=== PATIENT | male | born 1935 | race Caucasian/White ===

== ENCOUNTER 2023-12-01 09:18 | Emergency (ER) | payer MEDICARE, OTHER, SELFPAY ==
[2023-12-01 09:24] VITALS: BP 173/86
--- NOTE | 2023-12-01 09:32 | ED.GENMED ---
History of Present Illness
General
Chief Complaint: Back Pain
Time Seen by Provider: 12/01/23 09:32
Travel History
Have you had any contact with someone who has COVID-19?: No
Do you have any symptoms of coronavirus? Fever > 100 degrees, chills, cough, shortness of breath, sore throat, loss of taste or smell, muscle aches, or headache?: No
History of Present Illness
History of Present Illness:
HPI: The patient presents with back pain and intermittent lateral left thigh pain. He initially felt that the symptoms were related to sciatica. The thigh pain has resolved but the back pain persists. He has a history of solitary kidney related
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
EXAM:
GENERAL: Well appearing in mild distress
HEENT: Moist oral mucosa
ABDOMEN: Soft with no peritoneal signs, no tenderness
BACK: There is no midline L-spine tenderness, there is some vague lumbar tenderness which is very minimal, no CVA tenderness
NEUROLOGIC: Excellent strength all extremities, no coordination deficits
PSYCHIATRIC: Appropriate mental status, normal insight and judgement
EXTREMITIES: Nontender, no edema, moves all extremities equally
SKIN: No rash, no lesions
TIME OF INITIAL ENCOUNTER: 9:45 AM
NUMBER AND COMPLEXITY OF PROBLEMS ADDRESSED AT THE ENCOUNTER
� Chronic conditions affecting care: History of renal cell carcinoma, BPH, high blood pressure, hyperlipidemia
� Acute Exacerbation and/or Progression of Chronic Illness: This is an acute problem but has had sciatica in the past
� Differential Diagnosis includes: Sciatica, nonspecific back pain, metastatic disease
AMOUNT AND/OR COMPLEXITY OF DATA TO BE REVIEWED AND ANALYZED
� I performed an independent evaluation of and my interpretation is:
EKG:
CT: CT imaging shows advanced lumbar degenerative changes. CT of the abdomen pelvis shows no sign of obstructive nephropathy.
X-rays:
Laboratory Studies:
Other:
� Review of other/old records: I reviewed lab work from last year that showed renal insufficiency with creatinine of 1.5-1.6
� Clinical information was obtained by an independent historian: I spoke to the at bedside
� Prescriptions/Medications Considered but not given: Will hold off on steroids as there currently is no radicular symptoms
� Further testing considered but not performed:
RISK OF COMPLICATIONS AND/OR MORBIDITY OR MORTALITY OF PATIENT MANAGEMENT
� Social determinants of health affecting care: Lives at home
� Discussion with other providers:
� Escalation of care including admission/observation vs risk of discharge considered: Gave patient a dose of tramadol as he cannot have NSAIDs and has not really improved much with Tylenol. On reassessment 11:30 AM the patient
overall appears and feels improved. Offered to call their son who is a ER doctor in [place] however they declined. Instructed patient not to drive� will drive home.
Past History
Past History
ED Past Medical History: HTN, Hypercholesterolemia, Other (BPH) and Other (Peripheral vascular disease)
ED Past Surgical History: Appendectomy
Social History
Tobacco: Non-smoker
Alcohol: None
Personal:
Living: with family
Employment: Retired
Family History
Family History: Hypertension
Phy Exam
Physical Exam
Physical Exam:
See HPI
Course
Orders/Labs/Results
Orders:
Orders
12/01/23 09:43
CT Abd/pel Without Iv Or Oral Urgent
Comment:
Reason For Exam: L>R pain solitary kidney
Acetaminophen [Tylenol] 1,000 mg PO NOW STA
Tramadol HCl [Ultram] 50 mg PO NOW STA
12/01/23 09:44
CT Lumbar Spine W/o Iv Contras Urgent
Comment:
Reason For Exam: severe pain
Vital Signs
Initial and Last Documented VS:
Initial Vital Signs
Temp Pulse Resp BP Pulse Ox
97.8 F 86 16 173/86 98
12/01/23 09:24 12/01/23 09:24 12/01/23 09:24 12/01/23 09:24 12/01/23 09:24
Last Documented Vital Signs
Temp Pulse Resp BP Pulse Ox
97.8 F 86 16 173/86 98
12/01/23 09:24 12/01/23 09:24 12/01/23 09:24 12/01/23 09:24 12/01/23 09:24
*Critical Care Note
Total Time (30-74mins, 75-104mins- exclusive of procedures): Not Applicable
ED Attending Note
-
Portions of this chart may have been created with voice recognition software.� Occasional wrong word or��sound alike� substitutions may have occurred due to the inherent limitations of voice recognition software.
Discharge Plan
Departure
Patient Disposition: Home (Routine Discharge)
Date of Disposition: 12/01/23
Time of Disposition: 11:34
Patient with high blood pressure during this ER visit?: Yes
Discharge Problem:
Low back pain
Instructions: Low Back Pain (DC)
Prescriptions:
New
tramadol 50 mg tablet
50 mg PO Q8H PRN (Reason: Pain) Qty: 12 0RF
No Action
amlodipine 5 MG tablet
5 mg PO DAILY
irbesartan 150 MG tablet
150 mg PO DAILY
atorvastatin 40 mg Tablet
40 mg PO DAILY
carvedilol 6.25 mg Tablet
3.125 mg PO DAILY
aspirin 81 mg Tablet,Delayed Release (Dr/Ec)
81 mg PO HS
bisacodyl [Dulcolax (bisacodyl)] 10 mg Suppository
10 mg MD DAILYPRN PRN (Reason: constipation)
dutasteride 0.5 mg Capsule
0.5 mg PO MOWEFR
cholecalciferol (vitamin D3) [Vitamin D3] 25 mcg (1,000 unit) Tablet
25 mcg PO DAILY
furosemide [Lasix] 20 mg tablet
20 mg PO DAILY Qty: 30 0RF
Referrals:
Jordon Alvarado MD [Family Provider] -
Activity Restrictions/Additional Instructions:
The CAT scan of the abdomen pelvis shows no acute abnormality including no sign of obstructing kidney stone. The CAT scan of the lumbar spine shows marked degenerative changes throughout the lumbar spine but no sign of fracture. I am sending a
prescription for tramadol to your pharmacy but use this on a limited basis due to concern for side effects including sedation. Consider taking something like MiraLAX to help prevent constipation while on tramadol. Continue aching Tylenol as well.
Interventions
Interventions:
*Risk Screen - Suicide Last Done: 12/01/23 09:24
*General Assessment Last Done: 12/01/23 09:24
*Neglect/Abuse Screening Last Done: 12/01/23 09:24
ED-Musculoskeletal Assessment Last Done: 12/01/23 09:51
[2023-12-01] MEDS: ULTRAM 50 MG PO (09:47)
[2023-12-01] MEDS: TYLENOL 1000 MG PO (09:48)
== END 2023-12-01 11:50 | disposition home or self-care (01) ==
LOC: EMR 09:18
PROVIDERS: EMERGENCY PHYSICIAN Emergency Medicine; FAMILY PHYSICIAN Internal Medicine
DX: M54.50 Low back pain, unspecified (principal); I10 Essential (primary) hypertension; E78.00 Pure hypercholesterolemia, unspecified; N40.0 Benign prostatic hyperplasia without lower urinary tract symptoms; I73.9 Peripheral vascular disease, unspecified
CPT/HCPCS: 99284; 72131; 74176

== ENCOUNTER → 2024-05-08 09:58 | Outpatient (REF) | payer MEDICARE, OTHER, SELFPAY | LOC: RAD 09:58 | PROVIDERS: ATTENDING PHYSICIAN Internal Medicine Cardiovascular Disease; FAMILY PHYSICIAN Internal Medicine | DX: I73.9 Peripheral vascular disease, unspecified (principal) | CPT/HCPCS: 93922; 93925; 93978 ==